=== PATIENT | female | born 1985 | race Caucasian/White ===

== ENCOUNTER 2020-10-26 02:48 | Emergency (ER) | payer SELFPAY ==
[2020-10-26 03:18] VITALS: BP 179/84
[2020-10-26 05:30] LABS: APPEARANCE,URINE CLOUDY; BILIRUBIN,URINE NEGATIVE (NEGATIVE); COLOR,URINE YELLOW; GLUCOSE, URINE NEGATIVE (NEGATIVE); KETONES,URINE NEGATIVE (NEGATIVE); LEUKOCYTE ESTERASE,URINE NEGATIVE (NEGATIVE); NITRITE,URINE NEGATIVE (NEGATIVE); PROTEIN,URINE 30 mg/dL (NEGATIVE); URINE SPECIFIC GRAVITY 1.017; UROBILINOGEN,URINE NEGATIVE mg/dL (<2.0)
[2020-10-26 08:04] LABS: ABSOLUTE BASOPHILS # (AUTO) 0.1 10^3/uL (0.0-0.2); ABSOLUTE LYMPHOCYTES (AUTO) 1.4 10^3/uL (0.5-4.7); ABSOLUTE MONOCYTES (AUTO) 0.7 10^3/uL (0.1-1.4); ABSOLUTE NEUT (AUTO) 12.4 10^3/uL (1.7-8.2); BASOPHILS % (AUTO) 0.8 % (0-2); EOSINOPHILS % (AUTO) 0.1 % (0-6); HEMATOCRIT 43.5 % (36.0-47.0); HEMOGLOBIN 14.7 g/dL (12.0-15.5); LYMPHOCYTES % (AUTO) 9.4 % (13-45); MEAN CORPUSCULAR HEMOGLOBIN 29.9 pg (27.0-33.4); MEAN CORPUSCULAR HGB CONC 33.8 g/dL (32.0-36.0); MEAN CORPUSCULAR VOLUME 88 fl (80-97); MONOCYTES % (AUTO) 4.9 % (3-13); PLATELET COUNT 300 10^3/uL (150-450); RED BLOOD COUNT 4.92 10^6/uL (3.72-5.28); RED CELL DISTRIBUTION WIDTH 13.4 % (11.5-14.0); SEGMENTED NEUTROPHILS % (AUTO) 84.8 % (42-78); TOTAL CELLS COUNTED % (AUTO) 100 %; WHITE BLOOD COUNT 14.6 10^3/uL (4.0-10.5)
[2020-10-26 08:25] LABS: ALBUMIN 4.4 g/dL (3.5-5.0); ALKALINE PHOSPHATASE 70 U/L (38-126); ANION GAP 9 (5-19); ASPARTATE AMINO TRANSFERASE 22 U/L (14-36); BILIRUBIN,DIRECT 0.2 mg/dL (0.0-0.4); BILIRUBIN,TOTAL 0.5 mg/dL (0.2-1.3); BLOOD UREA NITROGEN 13 mg/dL (7-20); CALCIUM 9.9 mg/dL (8.4-10.2); CARBON DIOXIDE 26 mmol/L (22-30); CHLORIDE 101 mmol/L (98-107); GLUCOSE 127 mg/dL (75-110); POTASSIUM 4.7 mmol/L (3.6-5.0); TOTAL PROTEIN 7.7 g/dL (6.3-8.2)
--- NOTE | 2020-10-26 11:56 | ER Document Report ---
ED GI/ - General Chief Complaint: Flank Pain Stated Complaint: PAIN IN [place] Time Seen by Provider: 10/26/20 10:14 Primary Care Provider: [facility] [Provider Group] - Follow up as needed [facility] [Provider Group] - Follow up as needed - HPI Notes: Patient is a 35-year-old female with no medical history who presents with diffuse left abdominal pain that radiates to her left flank. Patient states her pain began last night. She reports nausea and vomiting due to the pain but denies any fever, diarrhea, constipation, dysuria, vaginal bleeding, vaginal discharge, chest pain, shortness of breath. She reports x4. She denies taking any medication for relief. Patient is currently uninsured and does not have a primary care provider. - Related Data Allergies/Adverse Reactions: No Known Allergies Allergy (Unverified 10/26/20 04:16) Past Medical History - General Information source: Patient - Social History Smoking Status: Current Every Day Smoker Frequency of alcohol use: Occasional Drug Abuse: None Family History: Reviewed & Not Pertinent Past Surgical History: Reports: Hx Section - x4 Review of Systems - Review of Systems Constitutional: No symptoms reported EENT: No symptoms reported Cardiovascular: No symptoms reported Respiratory: No symptoms reported Gastrointestinal: See HPI Genitourinary: No symptoms reported Female Genitourinary: No symptoms reported Musculoskeletal: No symptoms reported Skin: No symptoms reported Hematologic/Lymphatic: No symptoms reported Neurological/Psychological: No symptoms reported Physical Exam - Vital signs Vitals: Temp Pulse Resp BP Pulse Ox 98.8 F 87 18 179/84 H 98 10/26/20 02:54 10/26/20 02:54 10/26/20 02:54 10/26/20 02:54 10/26/20 02:54 - Notes Notes: PHYSICAL EXAMINATION: VITALS: Vitals reviewed and within normal limits. GENERAL: Well-appearing, well-nourished and in no acute distress. HEAD: Atraumatic, normocephalic. EYES: Pupils equal, round, and reactive to light, extraocular movements intact, sclera anicteric, conjunctiva are normal. ENT: Nares patent. Moist mucous membranes. Oropharynx clear without exudates. NECK: Normal range of motion, supple without lymphadenopathy. LUNGS: Breath sounds clear to auscultation bilaterally and equal. No wheezes, rales, or rhonchi. HEART: Regular, rate, and rhythm without murmurs. ABDOMEN: Soft abdomen with normoactive bowel sounds. Mild diffuse abdominal tenderness. No guarding, no rebound. No masses appreciated. Negative CVA tenderness. EXTREMITIES: Normal range of motion, no pitting or edema. No cyanosis. NEUROLOGICAL: No focal neurological deficits. Moves all extremities spontaneously and on command. PSYCH: Normal mood, normal affect. SKIN: Warm, Dry, normal turgor, no rashes or lesions noted. Course - Re-evaluation Re-evalutation: Patient is a 35 y/o female with no medical hx who presents with left abdominal pain that radiates to her left flank. Patient is hypertensive with a BP of 179/84. Vital signs are otherwise within normal limits and patient is afebrile. CBC shows an elevated WBC of 14.6. CMP and lipase are within normal limits. Serum HCG negative. UA shows protein of 30 but negative blood. No signs of infection with negative leukocyte esterase and negative nitrites. CT abd/pelvis shows left hydronephrosis secondary to an 8 mm calculus at the UPJ. A 10 mm lower calyceal calculus is seen in the left kidney as well. Hepatomegaly. I spoke with my supervising physician, Dr. Bach, concerning this patient. He came and evaluated the patient and reviewed her labwork and imaging. He recommends pain medication, zofran and IVF at this time. If patient's nausea and pain is appropriately controlled here in the ED, he recommends patient be discharged home with a urology referral and prescriptions for pain medication, zofran and flomax. We discussed this with the patient and she is in agreement with the plan. Pain was able to be controlled here in the emergency department. Patient is tolerating oral intake. Clinical history is not consistent with an acute abdominal aneurysm or dissection, RI, or pulmonary embolus. Urinalysis does not show findings consistent with an infected stone. Vitals have remained within normal limits. Lengthy discussion concerning the importance of prompt urology follow up due to the size of her stones. Urology referral given. Patient will be discharged with prescriptions for pain medications, zofran and flomax. Return precautions given. They are in agreement with this plan and verbalized indications return to emergency department. - Vital Signs Vital signs: Temp Pulse Resp BP Pulse Ox 98.8 F 87 16 179/84 H 98 10/26/20 04:22 10/26/20 04:22 10/26/20 04:22 10/26/20 04:22 10/26/20 04:22 - Laboratory Results Result Diagrams: 10/26/20 07:40 10/26/20 07:40 Laboratory Results Interpreted: 10/26/20 10/26/20 10/26/20 04:25 07:40 07:40 WBC 14.6 H Lymph % (Auto) 9.4 L Absolute Neuts (auto) 12.4 H Seg Neutrophils % 84.8 H Sodium 136.1 L Glucose 127 H Urine Protein 30 H Critical Laboratory Results Reviewed: No Critical Results - Radiology Results Radiology Results Interpreted: Abdomen/Pelvis CT 10/26/20 11:51 IMPRESSION: 1. Left hydronephrosis secondary to an 8 mm calculus at the UPJ. A 10 mm lower calyceal calculus is seen in the left kidney as well. 2. Hepatomegaly. Critical Radiology Results Reviewed: No Critical Results Discharge - Discharge Clinical Impression: Renal calculi, Hydronephrosis, left Condition: Stable Disposition: HOME, SELF-CARE Additional Instructions: You are passing or have passed a kidney stone. These stones are usually due to increased calcium or uric acid concentrations in your urine. Stones within the kidney itself are not painful. The pain occurs as the stone leaves the kidney to pass down the long tube, called the ureter, leading to the bladder. If the stone is small, it will usually pass by itself. Most patients can pass the stone at home. However, your stone is large, 8mm, which may not pass on its own. That is why it is important that you follow up with urology as soon as possible. Follow up with [facility]: [address] [place] [address] If you continue to have pain for greater than one week or your pain is not controlled with the pain medications that you have been sent home with you need to return to the emergency department. Please also return if you develop fever, persistent vomiting, or any other symptoms that are concerning to you. You should take ibuprofen 600 mg every 6 hours and use the oral pain medication as prescribed only for pain not controlled by ibuprofen. You are also been sent home with a medication called Flomax to help pass the stone. You've been given Zofran to assist with nausea. Prescriptions: Ondansetron [Zofran Odt 4 mg Tablet] 1 - 2 tab PO Q4HP PRN #15 tab.rapdis PRN Reason: Tamsulosin HCl [Flomax 0.4 mg Cap.sr] 0.4 mg PO DAILY #7 cap.sr.24h Oxycodone HCl/Acetaminophen [Percocet 5-325 mg Tablet] 1 - 2 tab PO TID PRN #15 tab PRN Reason: Referrals: [facility] [Provider Group] - Follow up as needed [facility] [Provider Group] - Follow up as needed
--- NOTE | 2020-10-26 13:17 | RADIOLOGY REPORT (SQ) ---
EXAM DESCRIPTION: CT ABD/PELVIS WITH IV ONLY IMAGES COMPLETED DATE/TIME: 10/26/2020 12:54 pm REASON FOR STUDY: abdominal pain COMPARISON: None. TECHNIQUE: CT scan of the abdomen and pelvis performed using helical scanning technique with dynamic intravenous contrast injection. No oral contrast. Images reviewed with lung, soft tissue, and bone windows. Reconstructed coronal and sagittal MPR images reviewed. Delayed images for evaluation of the urinary system also acquired. All images stored on PACS. All CT scanners at this facility use dose modulation, iterative reconstruction, and/or weight based d osing when appropriate to reduce radiation dose to as low as reasonably achievable (ALARA). [facility]: Dose Right [facility]: CareDose [facility]: Dose Right [facility]: Teradose 4D [facility]: A & A Custom Cornhole CONTRAST TYPE AND DOSE: contrast/concentration: Isovue 350.00 mmol/ml; Total Contrast Delivered: 100 .0 ml; Total Saline Delivered: 45.0 ml RENAL FUNCTION: BUN 13 creatinine 1 RADIATION DOSE: CT Rad equipment meets quality standard of care and radiation dose reduction techniq ues were employed. CTDIvol: 14.6 - 14.6 mGy. DLP: 1453 mGy-cm.. LIMITATIONS: None. FINDINGS: LOWER CHEST: No significant findings. No nodules or infiltrates. LIVER: Hepatomegaly. The liver measures 22 cm in cephalocaudal dimension. No masses. SPLEEN: Normal size. No focal lesions. PANCREAS: No masses. No significant calcifications. No adjacent inflammation or peripancreatic fluid collections. Pancreatic duct not dilated. GALLBLADDER: No identified stones by CT criteria. No inflammatory changes to suggest cholecystitis. ADRENAL GLANDS: No significant masses or asymmetry. RIGHT KIDNEY AND URETER: No solid masses. No significant calcifications. No hydronephrosis or hyd roureter. LEFT KIDNEY AND URETER: No solid masses. There is a 10 mm lower calyceal calculus. There is an 8 m m calculus at the ureteral pelvic junction. Mild hydronephrosis. AORTA AND VESSELS: No aneurysm. No dissection. Renal arteries, SMA, celiac without stenosis. RETROPERITONEUM: No retroperitoneal adenopathy, hemorrhage or masses. BOWEL AND PERITONEAL CAVITY: No masses or inflammatory changes. No free fluid or peritoneal masses. APPENDIX: Normal. PELVIS: No mass. No free fluid. Normal bladder. ABDOMINAL WALL: No masses. No hernias. BONES: No significant or acute findings. OTHER: No other significant finding. IMPRESSION: 1. Left hydronephrosis secondary to an 8 mm calculus at the UPJ. A 10 mm lower calycea l calculus is seen in the left kidney as well. 2. Hepatomegaly. TECHNICAL DOCUMENTATION: JOB ID: [id number] Quality ID # [id number]: Final reports with documentation of one or more dose reduction techniques (e.g., Au tomated exposure control, adjustment of the mA and/or kV according to patient size, use of iterative reconstruction technique) 2010 [employer]- All Rights Reserved Reading location - IP/workstation name: [email or web address]
[2020-10-26] MEDS ORDERED: NORMAL SALINE 1000 ML 1,000 ML IV ONE (14:07)
[2020-10-26] MEDS ORDERED: ONDANSETRON HCL INJ/PF 4 MG/2 ML SDV IV ONE (14:07)
[2020-10-26] MEDS ORDERED: KETOROLAC TROMETHAMINE INJ/PF 30 MG/1 ML SDV IV ONE (14:08)
--- NOTE | 2020-10-26 14:13 | ER Document Report ---
Doctor's Note Notes: 10/26/20 14:10 35-year-old female I was asked see along with midlevel provider regarding flank pain with kidney stone identified. I have reviewed the record in detail including imaging and lab data. I have briefly examined the patient at the bedside and obtained supplemental history. Patient has multiple renal stones. She has a stone in excess of 8 mm diameter and proximal ureter. Her creatinine is normal. She is having ongoing pain but is not yet received analgesia here. Her urinalysis shows minimal pyuria and microscopic hematuria. Her peripheral white count is elevated 14,000. She does not have a fever. At this point I would recommend the patient receive IV normal saline, IV Toradol and IV Zofran. If this fails to adequately control her pain she can receive a dose of narcotic analgesic. If her pain and nausea can be controlled satisfactorily in ED I think she can safely go home on oral analgesics, Flomax and Zofran. She will need outpatient follow-up with urology. I have advised patient to return to the emergency department for any of the following: Pain that is worsening or unimproved Uncontrolled vomiting High fever or shaking chills Overall worsening I have advised patient that there is a good chance she may require ESWL on an outpatient basis given the size and location of her current stone. We will provide a referral to urologist and will contact urology prior to her discharge. Findings, clinical impression and plan of treatment have been discussed with patient/family. Understanding of current findings and recommendations has been acknowledged by them and there is agreement regarding disposition and follow-up.
== END 2020-10-26 16:42 | disposition home or self-care (01) ==
LOC: ER 02:48
DX: N20.0 Calculus of kidney (principal); N13.30 Unspecified hydronephrosis; R10.9 Unspecified abdominal pain; R11.2 Nausea with vomiting, unspecified; F17.200 Nicotine dependence, unspecified, uncomplicated
CPT/HCPCS: 99285; 96361; 96374; 96375; 36415; 83690; 84703; 85025; 80053; 81001; 74177; J1885; J2405; J7030